=== PATIENT | female | born 1950 | race Caucasian/White ===

== ENCOUNTER 2020-06-06 11:29 | Inpatient (IN) | payer MEDICARE, OTHER ==
[~2020-06-06] VITALS: Ht 157.5 cm; Wt 53.1 kg
[~2020-06-06 11:29] MED LIST: CRESTOR20 MG PO; ECOTRIN81 MG PO; HYDROCODON-ACE1 EAC2 PO; IBUPROFEN800 MG PO; NITROSTAT 0.40.4 MG SL; NORCO 7.5-3251 EACH PO; NORVASC10 MG PO; PREDNISONE10 MG PO; TENORMIN 50 MG50 MG PO; VASOTEC20 MG PO; XANAX1 MG PO
[2020-06-06 13:16] LABS: HEMOGLOBIN 11.5 gm/dl (12.3-15.3); RED BLOOD COUNT 3.79 M/UL (4.00-5.10); WHITE BLOOD COUNT 6.4 K/UL (4.5-11.0)
[2020-06-06 13:36] LABS: BUN/CREATININE RATIO 17 (0-10)
[2020-06-07 01:52] LABS: HEMOGLOBIN 11.7 gm/dl (12.3-15.3); RED BLOOD COUNT 3.86 M/UL (4.00-5.10); WHITE BLOOD COUNT 7.2 K/UL (4.5-11.0)
[2020-06-07 02:23] LABS: BUN/CREATININE RATIO 22 (0-10)
[2020-06-09 04:09] LABS: RED BLOOD COUNT 3.59 M/UL (4.00-5.10)
[2020-06-09 04:13] LABS: WHITE BLOOD COUNT 16.4 K/UL (4.5-11.0)
[2020-06-09 04:31] LABS: BUN/CREATININE RATIO 50 (0-10)
--- NOTE | 2020-06-09 10:39 | NUR ---
PATIENT SATS 87% ON ROOM AIR AT REST
[2020-06-09 10:54] LABS: HEMOGLOBIN 11.5 gm/dl (12.3-15.3); RED BLOOD COUNT 3.75 M/UL (4.00-5.10); WHITE BLOOD COUNT 14.8 K/UL (4.5-11.0)
[2020-06-09] MEDS ORDERED: COMBIVENT RESPIM4 GM INH (11:56)
[2020-06-09] MEDS ORDERED: SPIRIVA HANDIH18 MCG INH (11:56)
[2020-06-09] MEDS ORDERED: ZITHROMAX500 MG PO (11:56)
[2020-06-09] MEDS ORDERED: AUGMENTIN 875-1 EACH PO (11:56)
[2020-06-09] MEDS ORDERED: SYMBICORT 16010.2 GM INH (11:56)
[2020-06-09] MEDS ORDERED: PREDNISONE 20 M20 MG PO (12:42)
[2020-08-10] MEDS ORDERED: LASIX40 MG PO (07:46)
[2020-08-21] MEDS ORDERED: PREDNISONE10 M1 PO (07:59)
[2020-08-21] MEDS ORDERED: LISINOPRIL-HCT1 EAC1 PO (07:59)
[2020-08-21] MEDS ORDERED: FOLIC ACID1 MG PO (08:00)
[2020-08-21] MEDS ORDERED: PROTONIX40 MG PO (08:01)
== END 2020-06-09 15:30 | disposition home or self-care (01) | DRG 193 ==
LOC: ER1 11:29 → MED SURG 4 15:31 → CDU 15:31 → MED SURG 4 15:43
PROVIDERS: Internal Medicine; Physician Assistant; Physician Assistant Medical; ADMIT Internal Medicine
DX: J18.9 Pneumonia, unspecified organism (principal); J96.01 Acute respiratory failure with hypoxia; J44.0 Chronic obstructive pulmonary disease with (acute) lower respiratory infection; J44.1 Chronic obstructive pulmonary disease with (acute) exacerbation; Z20.822 Contact with and (suspected) exposure to COVID-19; R07.89 Other chest pain; D64.9 Anemia, unspecified; I25.10 Atherosclerotic heart disease of native coronary artery without angina pectoris; I10 Essential (primary) hypertension; E78.5 Hyperlipidemia, unspecified; Z87.891 Personal history of nicotine dependence; Z85.118 Personal history of other malignant neoplasm of bronchus and lung; Z91.041 Radiographic dye allergy status; Z82.49 Family history of ischemic heart disease and other diseases of the circulatory system; Z83.3 Family history of diabetes mellitus; Z79.82 Long term (current) use of aspirin; Z79.899 Other long term (current) drug therapy
CPT/HCPCS: 36415; 36600; 71045; 71046; 80048; 80053; 82550; 82553; 82803; 83605; 83874; 83880; 84484; 85007; 85025; 85027; 85610; 87040; 93005; 94640; 94760; 96365; 99285; J0456; J0696; J2920; J7030; U0002

== ENCOUNTER → 2020-06-16 | Outpatient (CLI) | payer MEDICARE, OTHER ==
[~2020-06-16] MED LIST changes: +AUGMENTIN 875-1 EACH PO; +BENZONATATE100 MG PO; +BETAPACE 80MG T80 MG PO; +BROMFED DM COU473 ML PO; +COMBIVENT RESPIM4 GM INH; +DULCOLAX STOOL100 MG PO; +FOLIC ACID1 MG PO; +K-DUR TAB 20 M20 MEQ PO; +LASIX20 MG PO; +LASIX40 MG PO; +LISINOPRIL-HCT1 EAC1 PO; +LISINOPRIL5 MG PO; +LOPRESSOR 25 MG25 MG PO; +LORATADINE10 MG PO; +MEGACE 400400 MG/10 PO; +NITROGLYCERIN2.5 MG PO; +PREDNISONE 20 M20 MG PO; +PREDNISONE10 M1 PO; +PROTONIX40 MG PO; +ROBITUSSIN100 MG/5 M PO; +SPIRIVA HANDIH18 MCG INH; +SYMBICORT 16010.2 GM INH; +TESSALON PERLE100 MG PO; +ZITHROMAX500 MG PO
== END ==
LOC: KOH-I 16:22
DX: J18.9 Pneumonia, unspecified organism (principal); J43.9 Emphysema, unspecified; J90 Pleural effusion, not elsewhere classified; R91.8 Other nonspecific abnormal finding of lung field; I70.0 Atherosclerosis of aorta
CPT/HCPCS: 71046

== ENCOUNTER 2020-06-30 20:24 | Emergency (ER) | payer MEDICARE, OTHER ==
[~2020-06-30 20:24] MED LIST changes: -BENZONATATE100 MG PO; -BETAPACE 80MG T80 MG PO; -BROMFED DM COU473 ML PO; -DULCOLAX STOOL100 MG PO; -FOLIC ACID1 MG PO; -K-DUR TAB 20 M20 MEQ PO; -LASIX20 MG PO; -LASIX40 MG PO; -LISINOPRIL-HCT1 EAC1 PO; -LISINOPRIL5 MG PO; -LOPRESSOR 25 MG25 MG PO; -LORATADINE10 MG PO; -MEGACE 400400 MG/10 PO; -NITROGLYCERIN2.5 MG PO; -PREDNISONE10 M1 PO; -PROTONIX40 MG PO; -ROBITUSSIN100 MG/5 M PO; -TESSALON PERLE100 MG PO
[2020-08-10] MEDS ORDERED: LASIX40 MG PO (07:46)
[2020-08-21] MEDS ORDERED: PREDNISONE10 M1 PO (07:59)
[2020-08-21] MEDS ORDERED: LISINOPRIL-HCT1 EAC1 PO (07:59)
[2020-08-21] MEDS ORDERED: FOLIC ACID1 MG PO (08:00)
[2020-08-21] MEDS ORDERED: PROTONIX40 MG PO (08:01)
== END 2020-07-01 00:12 | disposition left against medical advice (07) ==
LOC: ER1 20:24
DX: R07.9 Chest pain, unspecified (principal); R06.81 Apnea, not elsewhere classified; Z53.21 Procedure and treatment not carried out due to patient leaving prior to being seen by health care provider
CPT/HCPCS: 93005

== ENCOUNTER 2020-07-17 15:09 | Inpatient (IN) | payer MEDICARE, OTHER ==
[~2020-07-17] VITALS: Ht 157.5 cm; Wt 48.8 kg
[2020-07-17 17:02] LABS: HEMOGLOBIN 10.9 gm/dl (12.3-15.3); RED BLOOD COUNT 3.55 M/UL (4.00-5.10); WHITE BLOOD COUNT 6.6 K/UL (4.5-11.0)
[2020-07-17 17:23] LABS: BUN/CREATININE RATIO 22 (0-10)
[2020-07-17] MEDS ORDERED: LASIX40 MG PO (21:38)
[2020-07-17] MEDS ORDERED: K-DUR TAB 20 M20 MEQ PO (21:49)
[2020-07-17] MEDS ORDERED: LOPRESSOR 25 MG25 MG PO (21:50)
[2020-07-17] MEDS ORDERED: BENZONATATE100 MG PO (21:51)
[2020-07-18 03:31] LABS: RED BLOOD COUNT 3.54 M/UL (4.00-5.10)
[2020-07-18 03:32] LABS: WHITE BLOOD COUNT 2.8 K/UL (4.5-11.0)
[2020-07-18 03:44] LABS: BUN/CREATININE RATIO 24 (0-10)
[2020-07-18 16:59] LABS: ACINETOBACTER BAUMANNII Not Detected (Negative); CANDIDA ALBICANS Not Detected (Negative); ENTEROCOCCUS Not Detected (Negative); ESCHERICHIA COLI Not Detected (Negative); HAEMOPHILUS INFLUENZAE Not Detected (Negative); KLEBSIELLA OXYTOCA Not Detected (Negative); KLEBSIELLA PNEUMONIAE Not Detected (Negative); KPC-CARBAPENEM-RESISTANCE GENE Not Detected (Negative); PROTEUS Not Detected (Negative); PSEUDOMONAS AERUGINOSA Not Detected (Negative); SERRATIA MARCESANS Not Detected (Negative); STAPHYLOCOCCUS Not Detected (Negative); STAPHYLOCOCCUS AUREUS Not Detected (Negative); STREP AGALACTIAE (GROUP B) Not Detected (Negative); STREP PYOGENES (GROUP A) Not Detected (Negative); mecA (METHICILLIN RESIST GENE Not Detected (Negative); vanA/B (VANCOMYCIN RESIST GENE Not Detected (Negative)
[2020-07-18 17:00] LABS: CANDIDA KRUSEI Not Detected (Negative); CANDIDA TROPICALIS Not Detected (Negative)
[2020-07-18 18:36] LABS: STREPTOCOCCUS DETECTED (Negative)
[2020-07-19 05:40] LABS: HEMOGLOBIN 11.2 gm/dl (12.3-15.3); RED BLOOD COUNT 3.62 M/UL (4.00-5.10)
[2020-07-19 05:42] LABS: WHITE BLOOD COUNT 11.3 K/UL (4.5-11.0)
[2020-07-19 05:56] LABS: BUN/CREATININE RATIO 29 (0-10)
[2020-07-20 03:55] LABS: HEMOGLOBIN 10.2 gm/dl (12.3-15.3); RED BLOOD COUNT 3.3 M/UL (4.00-5.10)
[2020-07-20 04:01] LABS: WHITE BLOOD COUNT 6.7 K/UL (4.5-11.0)
[2020-07-20 04:13] LABS: BUN/CREATININE RATIO 25 (0-10)
[2020-07-21 10:37] LABS: HEMOGLOBIN 11.5 gm/dl (12.3-15.3); WHITE BLOOD COUNT 7.8 K/UL (4.5-11.0)
[2020-07-21 10:39] LABS: RED BLOOD COUNT 3.75 M/UL (4.00-5.10)
[2020-07-21] MEDS ORDERED: AUGMENTIN 875-1 EACH PO (15:13)
[2020-07-22 04:23] LABS: HEMOGLOBIN 11.4 gm/dl (12.3-15.3); RED BLOOD COUNT 3.8 M/UL (4.00-5.10); WHITE BLOOD COUNT 6.3 K/UL (4.5-11.0)
[2020-07-22 04:31] LABS: BUN/CREATININE RATIO 20 (0-10)
[2020-07-23] MEDS ORDERED: ROBITUSSIN100 MG/5 M PO (10:23)
[2020-07-23] MEDS ORDERED: MEGACE 400400 MG/10 PO (10:23)
[2020-08-10] MEDS ORDERED: LASIX40 MG PO (07:46)
[2020-08-21] MEDS ORDERED: LISINOPRIL-HCT1 EAC1 PO (07:59)
[2020-08-21] MEDS ORDERED: PREDNISONE10 M1 PO (07:59)
[2020-08-21] MEDS ORDERED: FOLIC ACID1 MG PO (08:00)
[2020-08-21] MEDS ORDERED: PROTONIX40 MG PO (08:01)
== END 2020-07-23 14:33 | disposition home or self-care (01) | DRG 180 ==
LOC: ER1 15:09 → CDU 18:48 → MED SURG 4 18:48
PROVIDERS: Physician Assistant; Student in an Organized Health Care Education/Training Program; ADMIT Family Medicine
PROC: 0BB38ZX Excision of Right Main Bronchus, Via Natural or Artificial Opening Endoscopic, Diagnostic (ICD-10-PCS; principal; 2020-07-20)
PROC: 0B9K8ZX Drainage of Right Lung, Via Natural or Artificial Opening Endoscopic, Diagnostic (ICD-10-PCS; 2020-07-20)
PROC: 0BD38ZX Extraction of Right Main Bronchus, Via Natural or Artificial Opening Endoscopic, Diagnostic (ICD-10-PCS; 2020-07-20)
PROC: 0W9930Z Drainage of Right Pleural Cavity with Drainage Device, Percutaneous Approach (ICD-10-PCS; 2020-07-21)
DX: C34.91 Malignant neoplasm of unspecified part of right bronchus or lung (principal); J96.21 Acute and chronic respiratory failure with hypoxia; J18.9 Pneumonia, unspecified organism; R78.81 Bacteremia; J90 Pleural effusion, not elsewhere classified; Z20.822 Contact with and (suspected) exposure to COVID-19; J44.9 Chronic obstructive pulmonary disease, unspecified; E78.5 Hyperlipidemia, unspecified; I10 Essential (primary) hypertension; D72.819 Decreased white blood cell count, unspecified; B95.0 Streptococcus, group A, as the cause of diseases classified elsewhere; K21.9 Gastro-esophageal reflux disease without esophagitis; I25.10 Atherosclerotic heart disease of native coronary artery without angina pectoris; Z98.61 Coronary angioplasty status; Z99.81 Dependence on supplemental oxygen; Z98.42 Cataract extraction status, left eye; Z98.41 Cataract extraction status, right eye; Z91.041 Radiographic dye allergy status; Z87.891 Personal history of nicotine dependence; Z82.49 Family history of ischemic heart disease and other diseases of the circulatory system; Z83.3 Family history of diabetes mellitus; Z79.82 Long term (current) use of aspirin; Z79.899 Other long term (current) drug therapy
CPT/HCPCS: 0240U; 36415; 36600; 71045; 71046; 80048; 80053; 80202; 82550; 82553; 82803; 83605; 83735; 83874; 83880; 84100; 84484; 85025; 85027; 85610; 87040; 87077; 87150; 88341; 88342; 93005; 94640; 94664; 94760; 96365; 96366; 96367; 96368; 96372; 96375; 96376; 99285; J0171; J0456; J0696; J1650; J2405; J2543; J2704; J3010; J3370; J7030; J7040; J7070

== ENCOUNTER → 2020-08-03 | Outpatient (CLI) | payer MEDICARE, OTHER ==
[~2020-08-03] MED LIST changes: +BENZONATATE100 MG PO; +BETAPACE 80MG T80 MG PO; +BROMFED DM COU473 ML PO; +DULCOLAX STOOL100 MG PO; +FOLIC ACID1 MG PO; +K-DUR TAB 20 M20 MEQ PO; +LASIX20 MG PO; +LASIX40 MG PO; +LISINOPRIL-HCT1 EAC1 PO; +LISINOPRIL5 MG PO; +LOPRESSOR 25 MG25 MG PO; +LORATADINE10 MG PO; +MEGACE 400400 MG/10 PO; +NITROGLYCERIN2.5 MG PO; +PREDNISONE10 M1 PO; +PROTONIX40 MG PO; +ROBITUSSIN100 MG/5 M PO; +TESSALON PERLE100 MG PO
== END ==
LOC: RAD 13:06
DX: J91.0 Malignant pleural effusion (principal)
CPT/HCPCS: 71046

== ENCOUNTER → 2020-08-05 | Outpatient (CLI) | payer MEDICARE, OTHER | LOC: MRI 07-21 14:00 | DX: C34.12 Malignant neoplasm of upper lobe, left bronchus or lung (principal); G31.9 Degenerative disease of nervous system, unspecified | CPT/HCPCS: 70551 ==

== ENCOUNTER → 2020-08-21 | Day surgery (SDC) | payer MEDICARE, OTHER | END | disposition home or self-care (01) | LOC: OR 06:19 | DX: C34.90 Malignant neoplasm of unspecified part of unspecified bronchus or lung (principal); I87.8 Other specified disorders of veins; I25.10 Atherosclerotic heart disease of native coronary artery without angina pectoris; I10 Essential (primary) hypertension; J30.9 Allergic rhinitis, unspecified; E78.5 Hyperlipidemia, unspecified; J44.9 Chronic obstructive pulmonary disease, unspecified; E55.9 Vitamin D deficiency, unspecified; M19.90 Unspecified osteoarthritis, unspecified site; F41.9 Anxiety disorder, unspecified; Z88.8 Allergy status to other drugs, medicaments and biological substances; Z79.899 Other long term (current) drug therapy; Z98.62 Peripheral vascular angioplasty status; Z82.49 Family history of ischemic heart disease and other diseases of the circulatory system; Z82.3 Family history of stroke; Z87.891 Personal history of nicotine dependence; Z20.822 Contact with and (suspected) exposure to COVID-19 | CPT/HCPCS: 71045; 77001; C1769; C1788; J0690; J1100; J1642; J2001; J2405; J2704; J3010; J7040; J7120 ==

== ENCOUNTER 2020-08-29 10:03 | Observation (INO) | payer MEDICARE, OTHER ==
[~2020-08-29] VITALS: Ht 157.5 cm; Wt 51.3 kg
[~2020-08-29 10:03] MED LIST changes: -BETAPACE 80MG T80 MG PO; -BROMFED DM COU473 ML PO; -DULCOLAX STOOL100 MG PO; -LASIX20 MG PO; -LISINOPRIL5 MG PO; -LORATADINE10 MG PO; -NITROGLYCERIN2.5 MG PO; -TESSALON PERLE100 MG PO
[2020-08-29 11:41] LABS: HEMOGLOBIN 11.6 gm/dl (12.3-15.3); RED BLOOD COUNT 3.81 M/UL (4.00-5.10); WHITE BLOOD COUNT 9.6 K/UL (4.5-11.0)
[2020-08-30 04:55] LABS: RED BLOOD COUNT 2.78 M/UL (4.00-5.10)
[2020-08-30 04:58] LABS: HEMOGLOBIN 8.4 gm/dl (12.3-15.3)
== END 2020-08-30 13:35 | disposition home or self-care (01) ==
LOC: ER1 10:03 → CDU 16:45 → M/S 18:01
PROVIDERS: Student in an Organized Health Care Education/Training Program; ADMIT Internal Medicine
DX: E86.0 Dehydration (principal); I21.A1 Myocardial infarction type 2; R77.8 Other specified abnormalities of plasma proteins; C34.90 Malignant neoplasm of unspecified part of unspecified bronchus or lung; J96.21 Acute and chronic respiratory failure with hypoxia; E43 Unspecified severe protein-calorie malnutrition; J44.9 Chronic obstructive pulmonary disease, unspecified; I10 Essential (primary) hypertension; E78.5 Hyperlipidemia, unspecified; I25.10 Atherosclerotic heart disease of native coronary artery without angina pectoris; F17.210 Nicotine dependence, cigarettes, uncomplicated; D64.9 Anemia, unspecified; I27.20 Pulmonary hypertension, unspecified; Z95.5 Presence of coronary angioplasty implant and graft; Z68.20 Body mass index [BMI] 20.0-20.9, adult; Z99.81 Dependence on supplemental oxygen; Z98.890 Other specified postprocedural states; Z91.041 Radiographic dye allergy status; Z82.49 Family history of ischemic heart disease and other diseases of the circulatory system; Z79.82 Long term (current) use of aspirin; Z79.899 Other long term (current) drug therapy; Z20.822 Contact with and (suspected) exposure to COVID-19
CPT/HCPCS: ECHO; 0240U; 36415; 36600; 71045; 80053; 80202; 81001; 82550; 82553; 82803; 83605; 83735; 83874; 83880; 84100; 84484; 85025; 85652; 86140; 87040; 87086; 93005; 93306; 94640; 94664; 94760; 96365; 96366; 96368; 96372; 96376; 99285; G0378; J0692; J1650; J3370; J7030; J7050

== ENCOUNTER → 2020-11-03 | Outpatient (CLI) | payer MEDICARE, OTHER ==
[~2020-11-03] MED LIST changes: +BETAPACE 80MG T80 MG PO; +BROMFED DM COU473 ML PO; +DULCOLAX STOOL100 MG PO; +LASIX20 MG PO; +LISINOPRIL5 MG PO; +LORATADINE10 MG PO; +NITROGLYCERIN2.5 MG PO; +TESSALON PERLE100 MG PO
== END ==
LOC: LAB 12:30
PROVIDERS: Internal Medicine Hematology & Oncology
DX: C34.90 Malignant neoplasm of unspecified part of unspecified bronchus or lung (principal)
CPT/HCPCS: 36415; 85014; 85018; 86850; 86900; 86901; 86920; P9016

== ENCOUNTER → 2020-11-04 | Outpatient (CLI) | payer MEDICARE, OTHER ==
[~2020-11-04] VITALS: Ht 157.5 cm; Wt 42.2 kg
== END ==
LOC: OPSV 06:34
DX: C34.90 Malignant neoplasm of unspecified part of unspecified bronchus or lung (principal)
CPT/HCPCS: 36430; J1940; J7050; P9016

== ENCOUNTER → 2020-11-12 | Outpatient (CLI) | payer MEDICARE, OTHER | LOC: KOH-I 11-05 14:00 | DX: C78.01 Secondary malignant neoplasm of right lung (principal); C34.12 Malignant neoplasm of upper lobe, left bronchus or lung | CPT/HCPCS: 71250; 74176 ==

== ENCOUNTER 2020-12-20 21:45 | Inpatient (IN) | payer MEDICARE, OTHER ==
[~2020-12-20] VITALS: Ht 157.5 cm; Wt 49.9 kg
[~2020-12-20 21:45] MED LIST changes: -BETAPACE 80MG T80 MG PO; -BROMFED DM COU473 ML PO; -DULCOLAX STOOL100 MG PO; -LASIX20 MG PO; -LISINOPRIL5 MG PO; -LORATADINE10 MG PO; -NITROGLYCERIN2.5 MG PO; -TESSALON PERLE100 MG PO
[2020-12-20 22:09] LABS: HEMOGLOBIN 7.1 gm/dl (12.3-15.3); RED BLOOD COUNT 2.23 M/UL (4.00-5.10); WHITE BLOOD COUNT 12.3 K/UL (4.5-11.0)
[2020-12-20 22:40] LABS: BUN/CREATININE RATIO 17 (0-10)
[2020-12-21] MEDS ORDERED: LASIX20 MG PO (00:54)
[2020-12-21] MEDS ORDERED: BETAPACE 80MG T80 MG PO (00:55)
[2020-12-21] MEDS ORDERED: TESSALON PERLE100 MG PO (00:56)
[2020-12-21] MEDS ORDERED: BROMFED DM COU473 ML PO (00:59)
[2020-12-21] MEDS ORDERED: LORATADINE10 MG PO (00:59)
[2020-12-21] MEDS ORDERED: DULCOLAX STOOL100 MG PO (01:01)
[2020-12-21] MEDS ORDERED: LISINOPRIL5 MG PO (01:01)
[2020-12-21] MEDS ORDERED: NITROGLYCERIN2.5 MG PO (01:02)
[2020-12-21 11:37] LABS: BORDETELLA PARAPERTUSSIS Not Detected (Not Detectd); BORDETELLA PERTUSSIS Not Detected (Not Detectd); CHLAMYDIA PNEUMONIAE Not Detected (Not Detectd); CORONAVIRUS HKU1 Not Detected (Not Detectd); CORONAVIRUS NL63 Not Detected (Not Detectd); CORONAVIRUS OC43 Not Detected (Not Detectd); CORONOAVIRUS 229E Not Detected (Not Detectd); HUMAN METAPNEUMOVIRUS Not Detected (Not Detectd); HUMAN RHINOVIRUS/ENTEROVIRUS Not Detected (Not Detectd); INFLUENZA A Not Detected (Not Detectd); INFLUENZA B Not Detected (Not Detectd); MYCOPLASMA PNEUMONIAE Not Detected (Not Detectd); PARAINFLUENZA VIRUS 1 Not Detected (Not Detectd); PARAINFLUENZA VIRUS 2 Not Detected (Not Detectd); PARAINFLUENZA VIRUS 3 Not Detected (Not Detectd); PARAINFLUENZA VIRUS 4 Not Detected (Not Detectd); RESPIRATORY SYNCYTIAL VIRUS Not Detected (Not Detectd)
[2020-12-21 13:00] LABS: SARS-CoV-2 NOT DETECTED (Not Detectd)
[2020-12-22 04:14] LABS: HEMOGLOBIN 8.9 gm/dl (12.3-15.3)
[2020-12-22 04:24] LABS: RED BLOOD COUNT 2.88 M/UL (4.00-5.10); WHITE BLOOD COUNT 9.1 K/UL (4.5-11.0)
--- NOTE | 2020-12-23 00:45 | NUR ---
REPORT RECIEVED FROM AZALEA JEFFERY RN AT [id number]. PT A&O WITH FAMILY AT BEDSIDE.
[2020-12-23 03:24] LABS: HEMOGLOBIN 8.7 gm/dl (12.3-15.3); RED BLOOD COUNT 2.87 M/UL (4.00-5.10); WHITE BLOOD COUNT 9.3 K/UL (4.5-11.0)
[2020-12-24] MEDS ORDERED: K-DUR TAB 20 M20 MEQ PO (09:41)
== END 2020-12-24 12:16 | disposition home or self-care (01) | DRG 180 ==
LOC: ER1 21:45 → CDU 12-21 00:22 → M/S 12-21 00:22
PROVIDERS: Emergency Medicine; Internal Medicine; Physician Assistant Medical; ADMIT Internal Medicine
PROC: 30233N1 Transfusion of Nonautologous Red Blood Cells into Peripheral Vein, Percutaneous Approach (ICD-10-PCS; 2020-12-21)
PROC: 0W993ZZ Drainage of Right Pleural Cavity, Percutaneous Approach (ICD-10-PCS; principal; 2020-12-22)
DX: C34.90 Malignant neoplasm of unspecified part of unspecified bronchus or lung (principal); I50.33 Acute on chronic diastolic (congestive) heart failure; J90 Pleural effusion, not elsewhere classified; E44.0 Moderate protein-calorie malnutrition; J96.11 Chronic respiratory failure with hypoxia; J93.9 Pneumothorax, unspecified; Z20.822 Contact with and (suspected) exposure to COVID-19; R13.10 Dysphagia, unspecified; K21.9 Gastro-esophageal reflux disease without esophagitis; J44.9 Chronic obstructive pulmonary disease, unspecified; D63.0 Anemia in neoplastic disease; I11.0 Hypertensive heart disease with heart failure; I27.20 Pulmonary hypertension, unspecified; Z66 Do not resuscitate; I48.0 Paroxysmal atrial fibrillation; I25.10 Atherosclerotic heart disease of native coronary artery without angina pectoris; E78.5 Hyperlipidemia, unspecified; Z68.20 Body mass index [BMI] 20.0-20.9, adult; Z99.81 Dependence on supplemental oxygen; Z95.5 Presence of coronary angioplasty implant and graft; Z98.49 Cataract extraction status, unspecified eye; Z91.041 Radiographic dye allergy status; Z82.49 Family history of ischemic heart disease and other diseases of the circulatory system; Z87.891 Personal history of nicotine dependence; Z79.82 Long term (current) use of aspirin; Z79.899 Other long term (current) drug therapy
CPT/HCPCS: 0240U; 36415; 36430; 71045; 71250; 74230; 80048; 80053; 82550; 82553; 83605; 83690; 83735; 84484; 85025; 85027; 85610; 85730; 86850; 86900; 86901; 86920; 87633; 92526; 92610; 92611-GN; 93005; 93970; 94640; 94664; 94760; 96374; 99285; J0696; J1650; J1940; J2270; J2543; P9016

== ENCOUNTER 2020-12-26 19:21 | Observation (INO) | payer MEDICARE, OTHER ==
[~2020-12-26] VITALS: Ht 157.5 cm; Wt 49.4 kg
[~2020-12-26 19:21] MED LIST changes: +BETAPACE 80MG T80 MG PO; +BROMFED DM COU473 ML PO; +DULCOLAX STOOL100 MG PO; +LASIX20 MG PO; +LISINOPRIL5 MG PO; +LORATADINE10 MG PO; +NITROGLYCERIN2.5 MG PO; +TESSALON PERLE100 MG PO
[2020-12-26 20:50] LABS: RED BLOOD COUNT 2.94 M/UL (4.00-5.10); WHITE BLOOD COUNT 10.2 K/UL (4.5-11.0)
== END 2020-12-27 04:22 | disposition expired ==
LOC: ER1 19:21 → CDU 23:12 → MED SURG 4 12-27 00:02
PROVIDERS: Family Medicine; ADMIT Internal Medicine
DX: J96.11 Chronic respiratory failure with hypoxia (principal); C34.90 Malignant neoplasm of unspecified part of unspecified bronchus or lung; R13.10 Dysphagia, unspecified; J44.9 Chronic obstructive pulmonary disease, unspecified; I25.10 Atherosclerotic heart disease of native coronary artery without angina pectoris; I11.0 Hypertensive heart disease with heart failure; I50.32 Chronic diastolic (congestive) heart failure; E78.5 Hyperlipidemia, unspecified; I27.20 Pulmonary hypertension, unspecified; I48.0 Paroxysmal atrial fibrillation; D64.9 Anemia, unspecified; N17.9 Acute kidney failure, unspecified; E44.0 Moderate protein-calorie malnutrition; K21.9 Gastro-esophageal reflux disease without esophagitis; Z99.81 Dependence on supplemental oxygen; Z95.5 Presence of coronary angioplasty implant and graft; Z91.041 Radiographic dye allergy status; Z87.891 Personal history of nicotine dependence; Z66 Do not resuscitate; Z20.822 Contact with and (suspected) exposure to COVID-19
CPT/HCPCS: 51701; 71045; 80053; 81001; 83690; 85025; 96374; 99285; G0378; J2270; U0002